=== PATIENT | female | born 1975 | race Two or more races ===

== ENCOUNTER 2019-02-23 04:41 | Inpatient (IN) | payer OTHER ==
[2019-02-23] VITALS (8 sets, daily range): BP systolic 92–129; BP diastolic 50–79
[~2019-02-23] VITALS: Ht 170.2 cm; Wt 77.1 kg
--- NOTE | 2019-02-23 04:56 | NUR ---
CY FROM HOME. PT WOKE UP WITH CP AND BACK PAIN 45 MIN AGO AND HAD A WITNESSED SYNCOPAL EPISODE. PT FEELS NAUSEOUS. PT DENIES HEAD INJURY, SOB, DIZZINESS. PER RA PT WAS HYPOTENSIVE ON SCENE. PT RECIEVED 324 ASPIRIN AND 200L OF NS EN ROUTE TO HOSPITAL. PT AAOX4, BREATHING EVEN AND UNLABORED, SKIN WARM AND INTACT, VSS, NO ACTUE DISTRESS NOTED AT THIS TIME. PT PLACED ON MONITOR AND PULSE OX, WILL CONTINUE TO MONITOR.
--- NOTE | 2019-02-23 04:59 | NUR ---
PT PRESENTED TO ED WITH IV SITE RAC 18G. LABS DRAWN FROM SITE, PERENNIAL HOUSE MANAGER AT BEDSIDE FOR COLLECTION.
[2019-02-23] MEDS ORDERED: IV NS 0.9% 500 ML BAG IV ONE ×2 (05:00→11:30)
--- NOTE | 2019-02-23 05:04 | NUR ---
RADIOLOGY AT BEDSIDE FOR XRAY
[2019-02-23 05:07] LABS: BASOPHILS # (AUTO) 0.1 /CMM (0.0-0.2); BASOPHILS % (AUTO) 0.8 % (0.0-2.0); EOSINOPHILS % (AUTO) 3.6 % (0.0-6.0); HEMATOCRIT 37 % (33-45); HEMOGLOBIN 12.5 g/dL (11.5-14.8); LYMPHOCYTES # (AUTO) 2.4 /CMM (0.8-4.8); LYMPHOCYTES % (AUTO) 30.6 % (20.0-44.0); MEAN CORPUSCULAR HGB CONC 34 g/dl (31.0-36.0); MEAN CORPUSCULAR VOLUME 90 fL (82-100); MONOCYTES # (AUTO) 0.6 /CMM (0.1-1.30); MONOCYTES % (AUTO) 7.4 % (2.0-12.0); NEUTROPHILS # (AUTO) 4.6 /CMM (1.8-8.9); NEUTROPHILS % (AUTO) 57.6 % (43.0-81.0); PLATELET COUNT (AUTO) 226 /CMM (150-450); RED BLOOD CELL COUNT(AUTO) 4.11 MIL/uL (4.0-5.2)
[2019-02-23 05:15] LABS: CALCIUM, SERUM 8.3 mg/dL (8.5-10.1); CARBON DIOXIDE 30 mmol/L (21-32); CHLORIDE 105 mmol/L (98-107); CREATININE 0.7 mg/dL (0.6-1.3); GLUCOSE 110 mg/dL (74-106); POTASSIUM 3.1 mmol/L (3.5-5.1); SODIUM SERUM 139 mmol/L (136-145); UREA NITROGEN, BLOOD 12 mg/dL (7-18)
[2019-02-23 05:21] LABS: ALANINE AMINOTRANSFERASE 31 U/L (12-78); ALBUMIN 3.2 g/dL (3.4-5.0); ALKALINE PHOSPHATASE 59 U/L (46-116); ASPARTATE AMINOTRANSFERASE 19 U/L (15-37); BILIRUBIN,DIRECT 0.1 mg/dL (0.0-0.2); BILIRUBIN,TOTAL 0.4 mg/dL (0.2-1.0); TOTAL PROTEIN, SERUM 6.9 g/dL (6.4-8.2)
--- NOTE | 2019-02-23 05:24 | NUR ---
PT UNABLE TO PROVIDE URINE SAMPLE AT THIS TIME. AWARE.
--- NOTE | 2019-02-23 06:44 | NUR ---
PT UNABLE TO PROVIDE URINE SAMPLE AT THIS TIME, ER AWARE
[2019-02-23] MEDS ORDERED: ZOLPIDEM TARTRATE 5 MG TABLET PO PRN (07:30)
[2019-02-23] MEDS ORDERED: ONDANSETRON HCL/PF 4 MG/2 ML VIAL IVP PRN (07:30)
[2019-02-23] MEDS ORDERED: MAG HYDROX/AL HYDROX/SIMETH 30 ML UDC PO PRN (07:30)
[2019-02-23] MEDS ORDERED: PANTOPRAZOLE 40 MG TABLET.DR PO SCH (07:30)
[2019-02-23] MEDS ORDERED: POTASSIUM CHLORIDE 20 MEQ TAB.PRT.SR PO ONE ×2 (07:30→10:00)
[2019-02-23] MEDS ORDERED: MAGNESIUM HYDROXIDE 30 ML UDC PO PRN (07:30)
[2019-02-23] MEDS ORDERED: ACETAMINOPHEN 325 MG TABLET PO PRN (07:30)
[2019-02-23] MEDS ORDERED: NITROGLYCERIN 0.4 MG/TAB BOTTLE SL PRN (08:00)
[2019-02-23] MEDS ORDERED: IV NS 0.9% 1,000 ML IV PRN ×2 (08:00→23:30)
--- NOTE | 2019-02-23 08:02 | NUR ---
Suhas cavazos in ED - 02/23/19 at 0809 by KATARZYNA RECEIVED WORD THAT PT IS GOING TO ROOM 329-1 TELE
--- NOTE | 2019-02-23 08:08 | NUR ---
REPORT GIVEN TO REBECA GARAY. ROOM 321-1.
--- NOTE | 2019-02-23 08:30 | NUR ---
MEDIA COORDINATOR NOTES PT ARRIVED ONTO THE UNIT AT 0830. PER PATIENT BEGAN TO HAVE RADIATING CHEST PAINS AT 0400 IN THE MORNING. PT BROUGHT IN BY . PT TELE MONITORED NSR. PT HAS A RIGHT AC #18 IV INTACT AND PATENT. PT EDUCATED ON THE USE OF THE CALL LIGHT. SAFETY PRECAUTIONS IN PLACE, BED IN LOWEST LOCKED POSITION, X2 SIDE RAILS UP AND CALL LIGHT WITHIN REACH. WILL CONTINUE TO MONITOR.
--- NOTE | 2019-02-23 08:39 | NUR ---
PATIENT SENT UP TO BED 321-1 FOR REBECA GARAY FOR CRUZ.
[2019-02-23] MEDS ORDERED: ASPIRIN 81 MG TAB.CHEW PO SCH (09:00)
--- NOTE | 2019-02-23 10:30 | NUR ---
RN NOTES PROTONIX TAB FELL ON FLOOR. WILL TAKE ANOTHER FROM [employer]
[2019-02-23 10:45] LABS: THYROID STIMULATING HORMONE 1.842 uIU/mL (0.358-3.74)
[2019-02-23] MEDS ORDERED: CT SWABBABLE VALVE TRANS SET 1 EA INFUS.SET MC ONE (13:43)
[2019-02-23] MEDS ORDERED: IV NS 0.9% 250 ML IV ONE (13:43)
[2019-02-23] MEDS ORDERED: IOHEXOL-350 100 ML VIAL IV ONE (13:43)
--- NOTE | 2019-02-23 14:32 | NUR ---
PT. REFUSED TO CONTINUE CT ANGIO HEART W/ 3D IMAGE.
--- NOTE | 2019-02-23 14:35 | NUR ---
DOOR MACHINE OPERATOR CTCA PT UNABLE TO TOLERATE BEING IN SCANNER. UNABLE TO COMPLETE TEST. WILL TRANSFER BACK TO ROOM. WILL NOTIFY HIDE MILL WORKER.
[2019-02-23] MEDS ORDERED: REGADENOSON 0.4 MG/5 ML DISP.SYRIN IVP ONE (15:30)
--- NOTE | 2019-02-23 19:07 | NUR ---
RN NOTES 0900: DR DOMINGO AND RN EXPLAINED, CTCA RISKS AND BENEFITS. PT NEEDED MULTIPLE TEACHING SESSIONS FROM MULTIPLE HEALTHCARE PROVIDERS. ROMEL ORDERED BOLUS NS OF 500ML TO INCREASE BLOOD PRESSURE. PT TAKEN DOWN FOR [facility]CA 1400. PT UNABLE TO CONTINUE TEST. INFORMED DR DOMINGO. PER DR DOMINGO EXPLAINED [place] AND STRESS TEST. PT CONTINUED TO NEED MANY SESSIONS FROM HEALTHCARE PROVIDERS. EXPLAINED THE RISKS AND BENEFITS OF TRACER ISOTOPE TO PATIENT AND THE NEED FOR STRESS TEST. 1800 PT TAKEN TO STRESS TEST. 1907 PT RETURNED FROM STRESS TEST.
--- NOTE | 2019-02-23 19:12 | NUR ---
RN CLOSING NOTES WILL ENDORSE TO VENDING STAND SUPERVISOR NURSE FOR CONTINUITY OF CARE.
--- NOTE | 2019-02-23 19:30 | NUR ---
INDIVIDUAL PENSION CONSULTANT OPENING NOTE RECEIVED PATIENT IN BED. A/O X4. TOLERATING ROOM AIR. RESPIRATIONS EVEN AND UNLABORED. NO SOB NOTED. DENIES PAIN AT THIS TIME. IV ACCESS IN RAC #18 PATENT AND SALINE LOCKED. EXTERNAL TELE MONITOR READS SR WITH HR 80. BED IS LOW AND LOCKED, SIDE RAILS UP X2, HOB ELEVATED IN HIGH FOWLERS POSITION. FAMILY AT THE BED SIDE. CALL WITHIN REACH,. WILL CONTINUE TO MONITOR.
--- NOTE | 2019-02-23 19:49 | NUR ---
APPLICATION SUPPORT DEVELOPER NOTE PATIENT WENT DOWN FOR PART 2 OF STRESS TEST.
--- NOTE | 2019-02-23 20:30 | NUR ---
FLOORING MACHINE OPERATOR NOTE PATIENT RETURNED FROM STRESS TEST. APPLIED TELE BOX. WILL CONTINUE TO MONITOR.
--- NOTE | 2019-02-23 22:00 | NUR ---
REFRIGERATION LEAD NOTE CALLED RADIOLOGY TO REVIEW THE STRESS TEST D/T PATIENT CURIOUS ABOUT RESULTS. STATED HE WILL VIEW IT SOON HE CAN. WILL NOTIFY PATIENT.
--- NOTE | 2019-02-23 22:30 | NUR ---
PICKLE WATER PUMP OPERATOR NOTE HOSPITALIST ORDERED TO ADMINISTER 1L BOLUS WIDE OPEN D/T PATIENT ORTHOSTATIC POSITIVE. ORDERS READ BACK, NOTED AND CARRIED OUT.
--- NOTE | 2019-02-23 22:40 | NUR ---
COLLEGE DEAN NOTE DR. KING VIEWED THE CARDIAC STRESS TEST AND HAS NO ORDERS FOR FURTHER WORK UP. WILL CALL HOSPITALIST TO REVIEW CHART AND INFORM PATIENT WANTS TO BE DISCHARGED.
--- NOTE | 2019-02-23 23:00 | NUR ---
DIRECTOR SYSTEMS NOTE DC ORDERS HAVE BEEN PLACED BY HOSPITALIST.
--- NOTE | 2019-02-23 23:45 | NUR ---
CHUCK SPLITTER NOTE ADMINISTERED T/O 1L BOLUS, WIDE OPEN, ONE TIME. WILL CONTINUE TO MONITOR.
--- NOTE | 2019-02-24 00:15 | NUR ---
MANAGER RISK MANAGEMENT NOTE PATIENT HAS BEEN DISCHARGED AND LEFT THE UNIT IN STABLE CONDITION. PLATE EMBOSSER WHEELS PATIENT DOWN STAIRS. BELONGINGS LIST SIGNED AND BELONGINGS AND VALUABLES RETURNED, EXIT CARE GIVEN. ID BAND AND IV REMOVED. Addendum: 02/24/19 at 0113 by NATALIE DOZIER RN PATIENT HAS LEFT WITH ONLY 500ML OF BOLUS D/T IMPATIENCE AND WANTING TO GO HOME.
== END 2019-02-24 00:15 | disposition home or self-care (01) | DRG 312 ==
LOC: ER 04:42 → TELE 06:22
PROVIDERS: ADMIT Nurse Practitioner Acute Care; ATTEND Nurse Practitioner Acute Care
DX: I95.1 Orthostatic hypotension (principal); K90.0 Celiac disease; E87.6 Hypokalemia; E78.5 Hyperlipidemia, unspecified; Z82.49 Family history of ischemic heart disease and other diseases of the circulatory system; E86.9 Volume depletion, unspecified; I25.10 Atherosclerotic heart disease of native coronary artery without angina pectoris
CPT/HCPCS: 36415; 71045-TC; 75574; 80048-TC; 80061-TC; 80076-TC; 83880; 84443-TC; 84484-TC; 84702-TC; 84703-TC; 85025-TC; 85378-TC; 85610-TC; 85730-TC; 87081-TC; 93307-TC; A9502; G0378; J2785; J7030; J7040; J7050; Q9967